=== PATIENT | male | born 1965 | race Caucasian/White ===

== ENCOUNTER 2019-08-28 16:18 | Emergency (ER) | payer BC ==
--- NOTE | 2019-08-28 16:27 | EDM.PDOC ---
ED HPI GENERAL MEDICAL PROBLEM - General Chief Complaint: Lower Extremity Injury/Pain Stated Complaint: TORN TENDON Time Seen by Provider: 08/28/19 16:20 - History of Present Illness INITIAL COMMENTS - FREE TEXT/NARRATIVE: HISTORY AND PHYSICAL: History of present illness: Patient's 53-year-old white male presents with concern of a right Achilles heel injury that occurred while playing pickle ball. He denies a trauma concern Review of systems: As per history of present illness and below otherwise all systems reviewed and negative. Past medical history: As per history of present illness and as reviewed below otherwise noncontributory. Surgical history: As per history of present illness and as reviewed below otherwise noncontributory. Social history: No reported history of drug or alcohol abuse. Family history: As per history of present illness and as reviewed below otherwise noncontributory. Physical exam: HEENT: Atraumatic, normocephalic, pupils reactive, negative for conjunctival pallor or scleral icterus, mucous membranes moist, throat clear, neck supple, nontender, trachea midline. Lungs: Clear to auscultation, breath sounds equal bilaterally, chest nontender. Heart: S1S2, regular, negative for clicks, rubs, or JVD. Abdomen: Soft, nondistended, nontender. Negative for masses or hepatosplenomegaly. Negative for costovertebral tenderness. Pelvis: Stable nontender. Genitourinary: Deferred. Rectal: Deferred. Extremities: Right Achilles tendon has a clear defect with palpation although patient is able to dorsi and plantarflex demonstrating some component of intact Achilles tendon. Neuro: Awake, alert, oriented. Cranial nerves II through XII unremarkable. Cerebellum unremarkable. Motor and sensory unremarkable throughout. Exam nonfocal. Diagnostics: X-ray right ankle Therapeutics: Posterior mold right ankle with slight plantar flexion crutches Impression: #1 Achilles tendon injury probable partial disruption Definitive disposition and diagnosis as appropriate pending reevaluation and review of above. Review of Systems - Review of Systems Review Of Systems: Comprehensive ROS is negative, except as noted in HPI. ED EXAM, GENERAL - Physical Exam Exam: See Below (See dictation) Course - Orders/Labs/Meds Orders: Active Orders 24 hr Category Date Time Status Ankle Min 3V Rt [CR] Stat Exams 08/28/19 16:21 Ordered Departure - Departure Time of Disposition: 16:26 Disposition: Home, Self-Care 01 Condition: Good Clinical Impression: Achilles tendon injury - Discharge Information Additional Instructions: The following information is given to patients seen in the emergency department who are being discharged to home. This information is to outline your options for follow-up care. We provide all patients seen in our emergency department with a follow-up referral. The need for follow-up, as well as the timing and circumstances, are variable depending upon the specifics of your emergency department visit. If you don't have a primary care physician on staff, we will provide you with a referral. We always advise you to contact your personal physician following an emergency department visit to inform them of the circumstance of the visit and for follow-up with them and/or the need for any referrals to a consulting specialist. The emergency department will also refer you to a specialist when appropriate. This referral assures that you have the opportunity for followup care with a specialist. All of these measure are taken in an effort to provide you with optimal care, which includes your followup. Under all circumstances we always encourage you to contact your private physician who remains a resource for coordinating your care. When calling for followup care, please make the office aware that this follow-up is from your recent emergency room visit. If for any reason you are refused follow-up, please contact the [facility] emergency department at and asked to speak to the emergency department charge nurse. [facility] - Orthopedic Clinic Professional [address], [address] [place] [address] Follow-up orthopedic clinic 9:45 AM tomorrow no weightbearing posterior mold crutches as directed return as needed as discussed - My Orders Last 24 Hours: My Active Orders 08/28/19 16:21 Ankle Min 3V Rt [CR] Stat - Assessment/Plan Last 24 Hours: My Active Orders 08/28/19 16:21 Ankle Min 3V Rt [CR] Stat
--- NOTE | 2019-08-28 16:59 | CR ---
HISTORY: Right ankle pain. Popping of the ankle. COMPARISON: None. FINDINGS: The ankle mortise appears intact. No evidence for acute fracture or dislocation. Soft tissues are within normal. Dictated by Vianney Price MD @ Aug 28 2019 4:57PM Signed by Dr. Vianney Price @ Aug 28 2019 4:57PM
== END 2019-08-28 17:56 | disposition home or self-care (01) ==
LOC: MW.ED 16:18
DX: S86.001A Unspecified injury of right Achilles tendon, initial encounter (principal); X58.XXXA Exposure to other specified factors, initial encounter; Y93.73 Activity, racquet and hand sports
CPT/HCPCS: 29515; 73610-26-RT; 73610-RT; 99283; 99283-25

== ENCOUNTER 2019-08-31 12:30 | Day surgery (SDC) | payer BC ==
[~2019-08-31 12:30] MED LIST: Glycopyrrolate 0.2 MG/ML SDV ONE; Lidocaine 2% 5 ML SDV ONE; Midazolam 1 MG/ML 2 ML SDV ONE; Neostigmine Methylsulfate 1 MG/ML 5 ML Syringe ONE; Ondansetron 4 MG/2 ML SDV ONE; Propofol 200 MG/20 ML SDV ONE; Rocuronium 100 MG/10 ML Syringe ONE; ceFAZolin 2 GM in Premix Bag 1 BAG IV SCH; fentaNYL 250 MCG/5 ML SDV ONE
--- NOTE | 2019-08-31 13:24 | PCM.PREANE ---
Preanesthetic Assessment - Anesthesia/Transfusion/Family Hx Anesthesia History: No Prior Anesthesia (only an LESI with sedation) Family History of Anesthesia Reaction: No Transfusion History: No Prior Transfusion(s) - Review of Systems General: No Symptoms Pulmonary: No Symptoms Cardiovascular: No Symptoms Gastrointestinal: No Symptoms Neurological: Other (chronic tinnitus, chronic LBP) Other: Reports: None - Physical Assessment NPO Status Date: 08/30/19 Height: 6 ft 3 in Weight: 87.09 kg ASA Class: 2 Mental Status: Alert & Oriented x3 Airway Class: Mallampati = 1 Dentition: Reports: Bridge ROM/Head Extension: Full Lungs: Clear to Auscultation, Normal Respiratory Effort Cardiovascular: Regular Rate, Regular Rhythm - Allergies Allergies/Adverse Reactions: Allergies Allergy/AdvReac Type Severity Reaction Status Date / Time No Known Allergies Allergy Verified 08/30/19 10:35 - Blood Blood Available: No - Anesthesia Plan Pre-Op Medication Ordered: None - Acknowledgements Anesthesia Type Planned: General Anesthesia Pt an Appropriate Candidate for the Planned Anesthesia: Yes Alternatives and Risks of Anesthesia Discussed w Pt/Guardian: Yes Pt/Guardian Understands and Agrees with Anesthesia Plan: Yes PreAnesthesia Questionnaire HEENT History: Reports: Other (See Below) Other HEENT History: wears glasses, permanent top bridge Cardiovascular History: Reports: Other (See Below) Other Cardiovascular History: "low blood pressure" Respiratory History: Reports: None Gastrointestinal History: Reports: None Genitourinary History: Reports: Other (See Below) Other Genitourinary History: prostatitis 10 years ago Musculoskeletal History: Reports: Other (See Below) Other Musculoskeletal History: occasional back pain, steroid injection in the past Neurological History: Reports: None Psychiatric History: Reports: None Endocrine/Metabolic History: Reports: None Hematologic History: Reports: None Immunologic History: Reports: None Oncologic (Cancer) History: Reports: None Dermatologic History: Reports: None - Infectious Disease History Infectious Disease History: Reports: Chicken Pox - Past Surgical History Head Surgeries/Procedures: Reports: None HEENT Surgical History: Reports: Oral Surgery Other HEENT Surgeries/Procedures: wisdom teeth extraction Cardiovascular Surgical History: Reports: None Respiratory Surgical History: Reports: None GI Surgical History: Reports: None Male Surgical History: Reports: None Endocrine Surgical History: Reports: None Neurological Surgical History: Reports: None Musculoskeletal Surgical History: Reports: None Oncologic Surgical History: Reports: None Dermatological Surgical History: Reports: None - SUBSTANCE USE Smoking Status *Q: Former Smoker Recreational Drug Use History: No - HOME MEDS Home Medications: Home Meds . [No Known Home Meds] 08/28/19 [History] - CURRENT (IN HOUSE) MEDS Current Meds: Current Medications Cefazolin Sodium/Dextrose 2 gm (/ Premix) 50 mls @ 100 mls/hr IV ONCALL ROBINSON Oxycodone/Acetaminophen (Percocet 325-10 Mg) 1 - 2 tab PO Q4H PRN PRN Reason: Pain Discontinued Medications Fentanyl (Sublimaze) Confirm Administered Dose 250 mcg .ROUTE .STK-MED ONE Stop: 08/31/19 11:09 Glycopyrrolate (Robinul) Confirm Administered Dose 0.4 mg .ROUTE .STK-MED ONE Stop: 08/31/19 11:09 Lidocaine (Xylocaine-Mpf 2%) Confirm Administered Dose 5 ml .ROUTE .STK-MED ONE Stop: 08/31/19 11:09 Midazolam HCl (Versed 1 Mg/Ml) Confirm Administered Dose 2 mg .ROUTE .STK-MED ONE Stop: 08/31/19 11:09 Neostigmine Methylsulfate (Neostigmine) Confirm Administered Dose 5 mg .ROUTE .STK-MED ONE Stop: 08/31/19 11:09 Ondansetron HCl (Zofran) Confirm Administered Dose 4 mg .ROUTE .STK-MED ONE Stop: 08/31/19 11:09 Propofol (Diprivan 20 Ml) Confirm Administered Dose 200 mg .ROUTE .STK-MED ONE Stop: 08/31/19 11:09 Rocuronium [place] (Zemuron) Confirm Administered Dose 100 mg .ROUTE .STK-MED ONE Stop: 08/31/19 11:09
[2019-08-31] MEDS ORDERED: Lactated Ringers 1,000 ML IV SCH (14:15)
[2019-08-31] MEDS ORDERED: Bupivacaine 25%/EPINEPHrine/PF 30 ML ONE (14:29)
[2019-08-31] MEDS ORDERED: ceFAZolin 1 GM Vial ONE (14:54)
[2019-08-31] MEDS ORDERED: Sodium Chloride 0.9% 20 ML ONE (14:54)
[2019-08-31] MEDS ORDERED: 50% Dextrose in Water 50 ML Syringe IVPUSH PRN (15:26)
[2019-08-31] MEDS ORDERED: Albuterol 0.083% 2.5 MG/3 ML Neb Soln NEB PRN (15:26)
[2019-08-31] MEDS ORDERED: Naloxone 0.4 MG/ML Syringe IVPUSH PRN (15:26)
[2019-08-31] MEDS ORDERED: EPINEPHrine 1:10,000 1 MG/10 ML Syringe IVPUSH PRN (15:26)
[2019-08-31] MEDS ORDERED: fentaNYL 100 MCG/2 ML SDV IVPUSH PRN (15:26)
[2019-08-31] MEDS ORDERED: Atropine 0.1 MG/ML 10 ML Syringe IVPUSH PRN ×2 (15:26)
--- NOTE | 2019-08-31 16:02 | PCM.OPNOTE ---
- General Post-Op/Procedure Note Date of Surgery/Procedure: 08/31/19 Operative Procedure(s): right achilles tendon repair with xenograft Pre Op Diagnosis: right closed achilles rupture Post-Op Diagnosis: Same Anesthesia Technique: General ET Tube Primary Surgeon: Joshua Nixon Anesthesia Provider: Ronak Myrick Special Education Teaching Assistant: Lulu Florez EBL in mLs: 10 Complications: None Condition: Good
--- NOTE | 2019-08-31 16:41 | PCM.POSTAN ---
POST ANESTHESIA ASSESSMENT - MENTAL STATUS Mental Status: Alert, Oriented - VITAL SIGNS Vital Signs: Last Vital Signs Temp 96.8 F 08/31/19 16:12 Pulse 66 08/31/19 16:38 Resp 15 08/31/19 16:38 BP 100/59 L 08/31/19 16:38 Pulse Ox 99 08/31/19 16:38 - RESPIRATORY Respiratory Status: Respiratory Rate WNL, Airway Patent, O2 Saturation Stable - CARDIOVASCULAR CV Status: Pulse Rate WNL, Blood Pressure Stable - GASTROINTESTINAL GI Status: No Symptoms - PAIN Pain Score: 0 - POST OP HYDRATION Hydration Status: Adequate & Stable
[2019-08-31] MEDS: Acetaminophen/oxyCODONE 325-10 MG Tab PO PRN ×2 (17:16→17:50)
--- NOTE | 2019-08-31 17:16 | OR ---
SURGEON: Joshua Nixon DATE OF PROCEDURE: 08/31/2019 PREOPERATIVE DIAGNOSIS: Right Achilles rupture, closed. POSTOPERATIVE DIAGNOSIS: Right Achilles rupture, closed. PROCEDURE PERFORMED: Right Achilles tendon repair with xenograft. PRIMARY SURGEON: Joshua Nixon D.O. LOCAL ANNOUNCER: FELICITAS Kendrick. Nurse practitioner, FELICITAS Kendrick, played an essential role in assisting in this case, helping to position the patient, retract structures as needed, as well as suturing and cutting sutures as indicated. Her presence improved patient's safety and decreased operative time. ANESTHESIA: General endotracheal intubation. FLUID: Lactated Ringer's solution. ESTIMATED BLOOD LOSS: 10 mL. COMPLICATIONS: None. SPECIMEN: None. DISCHARGE DISPOSITION: Stable to PACU. TOURNIQUET TIME: 51 minute. HISTORY AND INDICATIONS FOR THE PROCEDURE: The patient was seen preoperatively in the clinic. He was playing pickleball when he sustained the above-mentioned injury. Preoperative imaging including MRI confirmed the above-mentioned diagnosis. Risks and benefits of the procedure explained to the patient. Informed consent was obtained. DETAILS OF PROCEDURE: The patient was seen preoperatively by myself and the Anesthesia staff in the preoperative holding area where the operative site was marked. He was brought to the operative suite by the anesthesia staff where general endotracheal intubation was performed. He was placed in a prone position on a regular table. All extremities found to be well padded. The well-padded tourniquet placed on the right thigh. The right lower extremity was then prepped and draped in a sterile manner. Time-out was called identifying the correct patient, correct procedure, correct site and that antibiotics had been given within appropriate period of time. A midline incision was done starting about 2 cm proximal to the Achilles insertion extending approximately around 12 to 15 cm. Gelpi was used for retraction. Bovie electrocautery was used for hemostasis. The tendon was visualized protruding from the paratenon. I went medially through paratenon to avoid the lateral sural nerve, which was never visualized during the procedure. I mobilized the tendon from the paratenon. We then used two #2 FiberWire in a Doty stitch across the tendon, so originally he had 4 strands across that point. This was then tied and approximated in about 20 degrees of plantar flexion. I then did another #2 FiberWire in a Doty manner across the tendon for another two strands. I then used 2-0 Vicryl to do a paratenon repair in a running manner. I then applied my xenograft and cut it. I then tacked this down with running interlocking Vicryl sutures and then again ran a #2 FiberWire across with Doty stitches for another two strands across the tendon. I irrigated between each of these steps with Betadine-soaked irrigation. We then closed the paratenon and subcutaneous tissue with 2-0 Vicryl pops in a figure-of- eight manner and then closed the skin with skin diego followed by placing Betadine-soaked Adaptic sponges and tape. He was then taken to the PACU in stable condition and placed in his room. [id number] / MODL /[id number]
[2019-08-31] MEDS ORDERED: Ketorolac 30 MG/ML SDV IVPUSH ONE (17:41)
--- NOTE | 2019-08-31 18:15 | PCM48HPAN ---
Post Anesthesia Note - EVALUATION WITHIN 48HRS OF ANESTHETIC Vital Signs in Normal Range: Yes Patient Participated in Evaluation: Yes Respiratory Function Stable: Yes Airway Patent: Yes Cardiovascular Function Stable: Yes Hydration Status Stable: Yes Pain Control Satisfactory: Yes Nausea and Vomiting Control Satisfactory: Yes Mental Status Recovered: Yes Vital Signs: Last Vital Signs Temp 97.5 F 08/31/19 16:45 Pulse 64 08/31/19 17:15 Resp 6 L 08/31/19 17:15 BP 110/56 L 08/31/19 17:15 Pulse Ox 98 08/31/19 17:15 - COMMENTS/OBSERVATIONS Free Text/Narrative:: Patient is alert and oriented. RR 12-16 currently.
== END 2019-09-01 18:40 | disposition home or self-care (01) ==
LOC: MW.SDS 12:30
PROVIDERS: ATTEND Orthopaedic Surgery
DX: S86.011A Strain of right Achilles tendon, initial encounter (principal); Y93.73 Activity, racquet and hand sports; Z87.891 Personal history of nicotine dependence
CPT/HCPCS: 27652; A9270; J0690; J1885; J2001; J2250; J2405; J2704; J3010; J3490; J7120

== ENCOUNTER 2019-12-21 07:07 | Day surgery (SDC) | payer OTHER ==
[~2019-12-21 07:07] MED LIST changes: -Glycopyrrolate 0.2 MG/ML SDV ONE; +Lactated Ringers 1,000 ML IV SCH; -Lidocaine 2% 5 ML SDV ONE; -Midazolam 1 MG/ML 2 ML SDV ONE; -Neostigmine Methylsulfate 1 MG/ML 5 ML Syringe ONE; -Ondansetron 4 MG/2 ML SDV ONE; -Propofol 200 MG/20 ML SDV ONE; -Rocuronium 100 MG/10 ML Syringe ONE; -ceFAZolin 2 GM in Premix Bag 1 BAG IV SCH; -fentaNYL 250 MCG/5 ML SDV ONE
[2019-12-21] MEDS ORDERED: ceFAZolin 2 GM in Premix Bag 1 BAG IV SCH (08:00)
[2019-12-21] MEDS ORDERED: Midazolam 1 MG/ML 2 ML SDV ONE (08:04)
[2019-12-21] MEDS ORDERED: Ketamine 500 mg/10 ML MDV ONE (08:04)
--- NOTE | 2019-12-21 08:29 | PCM.PREANE ---
Preanesthetic Assessment - Anesthesia/Transfusion/Family Hx Anesthesia History: Prior Anesthesia Without Reaction Family History of Anesthesia Reaction: No Transfusion History: No Prior Transfusion(s) - Review of Systems General: No Symptoms Pulmonary: No Symptoms Cardiovascular: No Symptoms Gastrointestinal: No Symptoms Neurological: No Symptoms - Physical Assessment NPO Status Date: 12/20/19 NPO Status Time: 23:00 Vital Signs: Last Vital Signs Temp 97.7 F 12/21/19 07:15 Pulse 73 12/21/19 07:15 Resp 16 12/21/19 07:15 BP 120/59 L 12/21/19 07:15 Pulse Ox 96 12/21/19 07:15 Height: 6 ft 3 in Weight: 88.451 kg ASA Class: 2 Mental Status: Alert & Oriented x3 Airway Class: Mallampati = 2 Dentition: Reports: Normal Dentition ROM/Head Extension: Full Lungs: Clear to Auscultation, Normal Respiratory Effort Cardiovascular: Regular Rate, Regular Rhythm - Allergies Allergies/Adverse Reactions: Allergies Allergy/AdvReac Type Severity Reaction Status Date / Time No Known Allergies Allergy Verified 12/20/19 10:34 - Anesthesia Plan Pre-Op Medication Ordered: None - Acknowledgements Anesthesia Type Planned: General Anesthesia Pt an Appropriate Candidate for the Planned Anesthesia: Yes Alternatives and Risks of Anesthesia Discussed w Pt/Guardian: Yes Pt/Guardian Understands and Agrees with Anesthesia Plan: Yes Additional Comments: PMH: none PLAN: tiva with midaz and ketamine PreAnesthesia Questionnaire HEENT History: Reports: Other (See Below) Other HEENT History: wears glasses, has upper partial permanent denture Cardiovascular History: Reports: Other (See Below) Other Cardiovascular History: "low blood pressure" Respiratory History: Reports: None Gastrointestinal History: Reports: None Genitourinary History: Reports: Other (See Below) Other Genitourinary History: prostatitis 10 years ago Musculoskeletal History: Reports: None Other Musculoskeletal History: occasional back pain, steroid injection in the past Neurological History: Reports: None Psychiatric History: Reports: None Endocrine/Metabolic History: Reports: None Hematologic History: Reports: None Immunologic History: Reports: None Oncologic (Cancer) History: Reports: None Dermatologic History: Reports: None - Infectious Disease History Infectious Disease History: Reports: Chicken Pox - Past Surgical History Head Surgeries/Procedures: Reports: None HEENT Surgical History: Reports: Oral Surgery Other HEENT Surgeries/Procedures: wisdom teeth extraction Cardiovascular Surgical History: Reports: None Respiratory Surgical History: Reports: None GI Surgical History: Reports: None Male Surgical History: Reports: None Endocrine Surgical History: Reports: None Neurological Surgical History: Reports: None Musculoskeletal Surgical History: Reports: Other (See Below) Other Musculoskeletal Surgeries/Procedures:: Repair of right Achilles Tendon Oncologic Surgical History: Reports: None Dermatological Surgical History: Reports: None - SUBSTANCE USE Smoking Status *Q: Never Smoker Recreational Drug Use History: No - HOME MEDS Home Medications: Home Meds Acetaminophen/HYDROcodone [[place] 325-5 MG] 1 tab PO TID #21 tablet 12/21/19 [Rx] - CURRENT (IN HOUSE) MEDS Current Meds: Current Medications Cefazolin Sodium/Dextrose 2 gm (/ Premix) 50 mls @ 100 mls/hr IV ONCALL ROBINSON Lactated Ringer's (Ringers, Lactated) 1,000 mls @ 100 mls/hr IV ASDIRECTED ROBINSON Last Admin: 12/21/19 07:25 Dose: 100 mls/hr Discontinued Medications Ketamine HCl (Ketalar) Confirm Administered Dose 500 mg .ROUTE .STK-MED ONE Stop: 12/21/19 08:05 Midazolam HCl (Versed 1 Mg/Ml) Confirm Administered Dose 2 mg .ROUTE .STK-MED ONE Stop: 12/21/19 08:05
[2019-12-21] MEDS ORDERED: Bupivacaine 0.5%/EPINEPHrine 1:200,000 10 ML SDV ONE (08:57)
[2019-12-21] MEDS ORDERED: Vancomycin 1 GM SDV ONE (08:57)
[2019-12-21] MEDS ORDERED: ceFAZolin 1 GM Vial ONE (09:30)
[2019-12-21] MEDS ORDERED: Propofol 200 MG/20 ML SDV ONE ×2 (09:36→09:40)
--- NOTE | 2019-12-21 10:18 | PCM.OPNOTE ---
- General Post-Op/Procedure Note Date of Surgery/Procedure: 12/21/19 Operative Procedure(s): I and D right achilles including skin, subcutaneous tissue, tendon Pre Op Diagnosis: right achilles incision superficial infection Post-Op Diagnosis: Same Anesthesia Technique: MAC Primary Surgeon: Joshua Nixon Pathology: cultures, gram stain, tissue EBL in mLs: 10 Complications: None Condition: Good
--- NOTE | 2019-12-21 10:33 | PCM48HPAN ---
Post Anesthesia Note - EVALUATION WITHIN 48HRS OF ANESTHETIC Vital Signs in Normal Range: Yes Patient Participated in Evaluation: Yes Respiratory Function Stable: Yes Airway Patent: Yes Cardiovascular Function Stable: Yes Hydration Status Stable: Yes Pain Control Satisfactory: Yes Nausea and Vomiting Control Satisfactory: Yes Mental Status Recovered: Yes Vital Signs: Last Vital Signs Temp 98.2 F 12/21/19 10:09 Pulse 66 12/21/19 10:24 Resp 10 L 12/21/19 10:24 BP 94/64 12/21/19 10:24 Pulse Ox 95 12/21/19 10:24
--- NOTE | 2019-12-21 10:33 | PCM.POSTAN ---
POST ANESTHESIA ASSESSMENT - MENTAL STATUS Mental Status: Alert, Oriented - VITAL SIGNS Vital Signs: Last Vital Signs Temp 98.2 F 12/21/19 10:09 Pulse 66 12/21/19 10:24 Resp 10 L 12/21/19 10:24 BP 94/64 12/21/19 10:24 Pulse Ox 95 12/21/19 10:24 - RESPIRATORY Respiratory Status: Respiratory Rate WNL, Airway Patent, O2 Saturation Stable - CARDIOVASCULAR CV Status: Pulse Rate WNL, Blood Pressure Stable - GASTROINTESTINAL GI Status: No Symptoms - POST OP HYDRATION Hydration Status: Adequate & Stable
--- NOTE | 2019-12-21 16:35 | OR ---
SURGEON: Joshua Nixon DATE OF PROCEDURE: 12/21/2019 PREOPERATIVE DIAGNOSIS: Right Achilles incision superficial infection. POSTOPERATIVE DIAGNOSIS: Right Achilles incision superficial infection. PROCEDURE: 1. Irrigation and debridement of skin, subcutaneous tissue, and tendon of right Achilles. 2. Application of 10 cm x 20 cm MAJO incisional wound VAC. PRIMARY SURGEON: Joshua Nixon D.O. ANESTHESIA: MAC, local. FLUID: Lactated Ringer's solution. ESTIMATED BLOOD LOSS: 10 mL. COMPLICATIONS: None. SPECIMEN: Aerobic, anaerobic cultures; Gram stain; and tissue. DISCHARGE DISPOSITION: Stable to PACU. HISTORY AND INDICATIONS FOR PROCEDURE: The patient was seen preoperatively in the clinic. It had been over 3 months since his Achilles tendon repair. We had a superficial infection that we are treating with antibiotics orally. This was not resolving. Risks and goals of the procedure were explained to the patient. Informed consent was obtained. DETAILS OF PROCEDURE: The patient was seen preoperatively by myself and Anesthesia staff in the preoperative holding area where the operative site was marked. He was brought to the operative suite by Anesthesia staff where conscious sedation was administered. I did apply 10 mL of 0.5% Sensorcaine with epinephrine for local anesthesia. The right lower extremity was then prepped and draped in a sterile manner. Time-out was called identifying the correct patient, the correct procedure, correct site, and antibiotics had been given within appropriate period of time. An elliptical incision was made around the superior area of purulence. This was found to include sutures or suture abscess. The suture was part of the FiberWire, which was part of the tendon repair, removed the very superficial fibers of the tendon as well. Removed subcutaneous tissue and irrigated. I then found an area that was of concern earlier. I incised through it. This had some serous fluid, so I then ellipticized the skin and then removed some subcutaneous tissue as well as part of the tendon as well. I then copiously irrigated with Betadine infused irrigation, applied vancomycin powder after we had taken cultures, and then closed both wounds with 3-0 horizontal mattress sutures, which were interrupted. There was 1 area in the superior incision that was slightly open, so I applied a vertical mattress, which brought it shut. We then cleaned off the area, then applied benzoin, and then applied our MAJO 10 x 20 cm wound VAC. The patient was allowed to awaken from conscious sedation and taken to the PACU in stable condition. [id number] / MODL /[id number]
== END 2019-12-21 11:50 | disposition home or self-care (01) ==
LOC: MW.SDS 07:07
PROVIDERS: ATTEND Orthopaedic Surgery
DX: T81.41XA Infection following a procedure, superficial incisional surgical site, initial encounter (principal)
CPT/HCPCS: 12021; 87070; 87075; 87205; J0690; J2250; J2704; J3370; J3490; J7120; 88304